=== PATIENT | male | born 1975 | race Caucasian/White ===

== ENCOUNTER 2023-12-12 15:59 | Emergency (ER) | payer BC, SELFPAY ==
[2023-12-12 16:30] VITALS: BP 153/94; PULSE 71; RESP 18; TEMP 36.8; O2SAT 96; BMI 36.1
--- NOTE | 2023-12-12 16:37 | EXP.UTC ---
Discharge Plan Disposition Patient Disposition: Home, Self-Care Condition: Good Prescriptions Prescriptions: New triamcinolone acetonide 0.1 % cream 1 applic topical BID PRN (Reason: itching) Qty: 30 0RF methylprednisolone 4 mg Tablets,Dose Pack 4 mg PO DIRECTED 6 Days Qty: 21 0RF Rx Instructions: Take 1 pack as directed for 6 days Referrals Follow up/Referrals: Provider,Referral, MD [Primary Care Provider] - See instructions Activity Restrictions/Add. Instructions Additional Instructions/Restrictions: Don't start the oral steroids until tomorrow. Continue to take the the diphenhydramine (benedryl) you have been taking. It will make you drowys. Don't put the topical steroids (triamcinolone) on your face or your groin. Follow up with your regular doctor. GO TO THE ER FOR ANY WORSENING SYMPTOMS OR CONCERNS Clinical Impressions Clinical Impression: Bee sting Instructions Patient Instructions: Insect Bites and Stings, Methylprednisolone Injection Discharge ED Provider: Anshul Chin [facility] [place] [facility] General Stated complaint: bee sting- allergic Time Seen by Provider: 12/12/23 16:37 History of Present Illness Provider Complaint: He states that he was stung by a wasp earlier today. He has a history of getting significant swelling after bee stings, but he denies a history of true allergy. Related Data Previous Rx's Medication Instructions Recorded methylprednisolone 4 mg tablets in 4 mg PO DIRECTED 6 days #21 tabs 12/12/23 a dose pack triamcinolone acetonide 0.1 % 1 applic topical BID PRN itching 12/12/23 topical cream #30 grams Allergies Allergy/AdvReac Type Severity Reaction Status Date / Time bee venom protein (honey bee) Allergy Verified 12/12/23 16:40 Iodinated Contrast Media Allergy Verified 12/12/23 16:54 [facility] Disclaimer: The information contained in this section may have been updated after the patient was seen, as this information can be updated by other users. Social History Smoking Status: Never smoker alcohol intake: never current occupational status: employed Travel in the last 8 weeks: None ROS Obtained: Yes All systems reviewed & no additional complaints except as documented Constitutional Constitutional: Denies chills and Denies fever(s) Eyes Eyes: Denies eye discharge ENT Ears, Nose, Mouth, and Throat: Denies dizziness, Denies otalgia and Denies sore throat Cardiovascular Cardiovascular: Denies chest pain Respiratory Respiratory: Denies shortness of breath, Denies chest congestion, Denies cough, Denies stridor and Denies wheezing Gastrointestinal Gastrointestingal: Denies nausea or vomiting Musculoskeletal Musculoskeletal: Reports system reviewed and no additional complaints, except as documented and Denies arthralgias Integumentary/Breasts Skin/Breast: Reports as per HPI Neurologic Neurologic: Denies dizziness and Denies paresthesias Allergic/Immunologic Allergic/Immunologic: Denies wheezing Physical Exam General General appearance: alert and in no apparent distress Head Head exam: atraumatic, normocephalic and normal inspection Eye Eye exam: Present normal appearance, PERRL and EOMI ENT ENT exam: Present normal exam, normal oropharynx, mucous membranes moist, TM's normal bilaterally and normal external ear exam Neck Neck exam: Present normal inspection, full ROM and trachea midline; Absent meningismus or lymphadenopathy Chest Chest inspection: Present normal inspection and symmetric chest wall rise; Absent tenderness Respiratory Respiratory exam: Present normal lung sounds bilaterally; Absent respiratory distress Cardiovascular Cardiovascular exam: Present regular rate and normal rhythm; Absent JVD Abdominal Exam Abdominal exam: Present soft and normal bowel sounds; Absent distention, tenderness or guarding Extremities Exam Extremities exam: Present normal inspection, full ROM and normal capillary refill; Absent calf tenderness Back Exam Back exam: Present normal inspection; Absent tenderness Neurological Exam Neurological exam: Present alert and oriented X3 Psychiatric Psychiatric exam: Present normal affect and normal mood Skin Skin exam: Present erythema (He has an area or erythema on his left shoulder that measures 3 cm diameter. ) Lymphatic Lymphatic Findings: no adenopathy Medical Decision Making Medical Records Medical records reviewed: No I reviewed the patient's medical records. [place] Inquiry Pt receiving controlled substance: No
[2023-12-12] MEDS: METHYLPREDNISOLONE SOD SUCC 125MG VIAL 125 MG IM (16:42)
[2023-12-12 16:59] VITALS: BP 153/94; PULSE 71; RESP 18; TEMP 36.8; O2SAT 96
== END 2023-12-12 16:59 | disposition home or self-care (01) ==
PROVIDERS: Emergency Provider Nurse Practitioner Family
DX: S40.262A Insect bite (nonvenomous) of left shoulder, initial encounter (principal); W57.XXXA Bitten or stung by nonvenomous insect and other nonvenomous arthropods, initial encounter
CPT/HCPCS: 96372; 99204; 99212; G0463

== ENCOUNTER 2024-02-16 17:55 | Emergency (ER) | payer BC, SELFPAY ==
[2024-02-16 18:10] VITALS: BP 142/93; PULSE 68; RESP 20; TEMP 36.9; O2SAT 97; BMI 36.0
--- NOTE | 2024-02-16 18:22 | ED_ITS ---
Discharge Plan Disposition Patient Disposition: Home, Self-Care Condition: Good Prescriptions Prescriptions: New mupirocin 2 % ointment 1 applic topical TID 7 Days Qty: 15 0RF Referrals Follow up/Referrals: Provider,Referral, [Primary Care Provider] - See instructions Activity Restrictions/Add. Instructions Additional Instructions/Restrictions: Keep the wound clean and dry. Keep a dressing on it if you are going to be getting it dirty. Watch the wound for signs of infection, such as redness, swelling, drainage, fever. etc. Take tylenol or ibuprofen for pain. Follow up with your regular doctor. Return in 7 days to have the sutures removed. You could also follow up with your primary care physician to have them removed if you prefer. GO TO THE ER FOR ANY WORSENING SYMPTOMS OR CONCERNS. Clinical Impressions Clinical Impression: Skin lesion Instructions Patient Instructions: Skin Biopsy, DI for Skin Biopsy Print Language Print Language: Z[place]ian Discharge ED Provider: Anshul Chin [facility] [place] General Stated complaint: skin tag on stomach Mode of Arrival: Ambulatory Source of Information: Patient Limitations: No Limitations Time Seen by Provider: 02/16/24 18:22 Description of Symptoms (Recalled from Triage Doc. by RN): PATIENT C/O SKIN TAG TO ABDOMEN THAT HIS JEANS ARE RUBBING AND HE STATES HE IS AFRAID HE IS GOING TO ACCIDENTALLY RIP IT OFF AT WORK HEENT Symptoms (Recalled from RN notes): No Resp Symptoms (Recalled from RN notes): No Skin Symptoms (Recalled from RN notes): Yes MS Symptoms (Recalled from RN notes): No Functional Status (Recalled from RN notes): WNL History of Present Illness Provider Complaint: He states that he has a large skin tag on the right side of his lower abdomen. This has been present for the past 3 years. He denies any recent changes to the lesion, but he states that his job causes him to have to bend and twist a lot. These movements are irritating the skin tag. He would like to have it removed. Related Data Previous Rx's ?Medication ?Instructions ?Recorded mupirocin 2 % topical ointment 1 applic topical TID 7 days #15 02/16/24 grams Allergies Allergy/AdvReac Type Severity Reaction Status Date / Time bee venom protein (honey bee) Allergy Verified 12/12/23 16:40 Iodinated Contrast Media Allergy Verified 06/01/24 16:54 Worker's Comp Is this a Worker's Comp case?: No [facility] Disclaimer: The information contained in this section may have been updated after the patient was seen, as this information can be updated by other users. Medical History (Updated 02/16/24 @ 19:46 by Anshul Chin APRN) Depression Anxiety Migraine Social History (Updated 12/12/23 @ 17:05 by Anshul Chin APRN) Smoking Status: Never smoker alcohol intake: never current occupational status: employed Travel in the last 8 weeks: None ROS Obtained: Yes All systems reviewed & no additional complaints except as documented Constitutional Constitutional: Denies chills and Denies fever(s) Eyes Eyes: Denies eye discharge ENT Ears, Nose, Mouth, and Throat: Denies dizziness, Denies otalgia and Denies sore throat Cardiovascular Cardiovascular: Denies chest pain Respiratory Respiratory: Denies shortness of breath, Denies chest congestion, Denies cough, Denies stridor and Denies wheezing Gastrointestinal Gastrointestingal: Denies nausea or vomiting Musculoskeletal Musculoskeletal: Reports system reviewed and no additional complaints, except as documented and Denies arthralgias Integumentary/Breasts Skin/Breast: Reports as per HPI Neurologic Neurologic: Denies dizziness and Denies paresthesias Allergic/Immunologic Allergic/Immunologic: Denies wheezing Physical Exam General General appearance: alert and in no apparent distress Head Head exam: atraumatic, normocephalic and normal inspection Eye Eye exam: Present normal appearance, PERRL and EOMI ENT ENT exam: Present normal exam, normal oropharynx, mucous membranes moist, TM's normal bilaterally and normal external ear exam Neck Neck exam: Present normal inspection, full ROM and trachea midline; Absent meningismus or lymphadenopathy Chest Chest inspection: Present normal inspection and symmetric chest wall rise; Absent tenderness Respiratory Respiratory exam: Present normal lung sounds bilaterally; Absent respiratory distress Cardiovascular Cardiovascular exam: Present regular rate and normal rhythm; Absent JVD Abdominal Exam Abdominal exam: Present soft and normal bowel sounds; Absent distention, tenderness or guarding Extremities Exam Extremities exam: Present normal inspection, full ROM and normal capillary refill; Absent calf tenderness Back Exam Back exam: Present normal inspection; Absent tenderness Neurological Exam Neurological exam: Present alert and oriented X3 Psychiatric Psychiatric exam: Present normal affect and normal mood Skin Skin exam: Present other (there is a large skin tag on his right lower abdomen. ) Lymphatic Lymphatic Findings: no adenopathy Medical Decision Making Medical Records Medical records reviewed: No I reviewed the patient's medical records. [place] Inquiry Pt receiving controlled substance: No Vital Signs: 02/16/24 18:10 Temperature 98.4 F Temperature Source Oral Pulse Rate [Left Brachial] 68 Respiratory Rate 20 Blood Pressure [Left Arm] 142/93 H Blood Pressure Mean [Left Arm] 109 Blood Pressure Source [Left Arm] Automatic Cuff Blood Pressure Position [Left Arm] Sitting 02 Sat by Pulse Oximetry 97 Oxygen Delivery Method Room Air Medical Decision Narrative: He request to not have the skin lesion sent for biopsy. He states that he knows it is just a skin tag and is not cancer. Procedures Risk/Benefits of Procedure(s) Were Explained: Yes Miscellaneous Procedure Procedure Performed: The skin tag was removed from his abdominal without difficulty or complication. The area was first cleaned with chlorhexidine using sterile technique. Then, it was anesthetized using 1 milliliter of 1% plain lidocaine. It was then excised using a #11 blade. He tolerated this well. Bleeding was not able to be completely stopped by holding pressure, so 2 sutures were placed using 5-0 ethilon. He is to return in 1 week to have these removed. Sterile dressing was then applied to the wound.
[2024-02-16] MEDS: LIDOCAINE 1% PF 2ML AMPULE 1 ML SQ (18:37)
[2024-02-16 19:48] VITALS: BP 142/93; PULSE 68; RESP 20; TEMP 36.9; O2SAT 97
== END 2024-02-16 19:49 | disposition home or self-care (01) ==
PROVIDERS: Emergency Provider Nurse Practitioner Family
DX: L91.8 Other hypertrophic disorders of the skin (principal)
CPT/HCPCS: 11200; 99213; 99214; G0463

== ENCOUNTER 2024-02-23 17:55 | Emergency (ER) | payer BC, SELFPAY ==
[2024-02-23 18:10] VITALS: BP 136/101; PULSE 80; RESP 19; TEMP 36.7; O2SAT 96; BMI 36.8
[2024-02-23 18:18] VITALS: BP 136/101; PULSE 80; RESP 19; TEMP 36.7; O2SAT 96
== END 2024-02-23 18:20 | disposition home or self-care (01) ==
LOC: UTC 17:58
PROVIDERS: Emergency Provider Nurse Practitioner
DX: Z48.02 Encounter for removal of sutures (principal)